=== PATIENT | male | born 1965 | race Caucasian/White ===

== ENCOUNTER 2024-02-13 12:19 | Inpatient (IN) | payer BC ==
[2024-02-13 12:53] VITALS: BMI 25.4
[2024-02-13] MEDS ORDERED: MAG HYDROX/AL HYDROX/SIMETH 30 ML UNIT-DOSE CUP PO PRN (13:41)
[2024-02-13] MEDS ORDERED: IBUPROFEN 400 MG TABLET (FP) PO PRN (13:41)
[2024-02-13] MEDS ORDERED: ACETAMINOPHEN 325 MG TABLET (FP) PO PRN (13:41)
[2024-02-13] MEDS ORDERED: BENZOCAINE/MENTHOL (CHLORASEPTIC ) LOZENGE MM PRN (13:41)
[2024-02-13] MEDS ORDERED: POLYETHYLENE GLYCOL (HEALTHYLAX) 3350 17 GM PACKET PO PRN (13:41)
[2024-02-13] MEDS ORDERED: BISMUTH SUBSALICYLATE 524 MG/30 ML PO PRN (13:41)
[2024-02-13] MEDS ORDERED: ONDANSETRON *ODT* 4 MG TABLET SL PRN (13:41)
[2024-02-13] MEDS ORDERED: MAGNESIUM HYDROX 2400MG/30ML ORAL SUSPENSION 30 ML CUP PO PRN (13:41)
[2024-02-13] MEDS ORDERED: BENZONATATE 200 MG CAPSULE PO PRN (13:41)
[2024-02-13] MEDS ORDERED: IBUPROFEN 600 MG TABLET (FP) PO PRN (13:41)
[2024-02-13] MEDS ORDERED: NALOXONE HCL 0.4 MG/ML VIAL IM PRN (13:41)
[2024-02-13] MEDS ORDERED: guaiFENesin 600 MG TABLET.ER (FP) PO PRN (13:41)
[2024-02-13] MEDS ORDERED: LOPERAMIDE HCL 2 MG CAPSULE PO PRN (13:41)
[2024-02-13] MEDS ORDERED: DICYCLOMINE HCL 10 MG CAPSULE PO PRN (13:41)
[2024-02-13] MEDS ORDERED: NALOXONE HCL (KLOXXADO) 8 MG SPRAY NS PRN (13:41)
[2024-02-13] MEDS: PRENATAL VITAMINS W/ FOLIC ACID TABLET (FP) PO SCH (15:42)
[2024-02-13] MEDS: NICOTINE 21 MG/24 HOURS TOPICAL PATCH TD SCH (17:23)
[2024-02-13] MEDS: hydrOXYzine PAMOATE 25 MG CAPSULE (FP) PO PRN (22:52)
[2024-02-13] MEDS: METHOCARBAMOL 500 MG TABLET PO PRN (22:52)
[2024-02-13] MEDS: THIAMINE HCL 100 MG TABLET (FP) PO SCH (22:52)
[2024-02-13] MEDS: MELATONIN 5 MG TABLETS PO SCH (22:53)
[2024-02-14] MEDS ORDERED: LORazepam 1 MG TABLET PO PRN (08:15)
[2024-02-14] MEDS: LORazepam 2 MG TABLET PO ONE (09:14)
[2024-02-14] MEDS: LORazepam 2 MG TABLET PO SCH (11:52)
[2024-02-14 12:16] LABS: HEMATOCRIT 41.5 % (35.4-49); HEMOGLOBIN 13.7 GM/dL (11.7-16.9); MCH 34.1 pg (25.7-33.7); MCHC 33.1 g/dl (32.0-35.9); MEAN CELL VOLUME 103.2 fl (80-96); MEAN PLT VOLUME 7.5 fl (7.5-11.1); PLATELET COUNT 258 10^3/uL (134-434); POTASSIUM 3.9 mmol/L (3.5-5.1); RBC 4.03 M/mm3 (4.00-5.60); RDW 13.5 % (11.9-15.9); WHITE BLOOD COUNT 9.7 K/mm3 (4.0-10.0)
[2024-02-14 12:18] LABS: CALCIUM 9.1 mg/dL (8.5-10.1)
[2024-02-14 12:19] LABS: ALBUMIN 3.5 g/dl (3.4-5.0)
[2024-02-14 12:22] LABS: CREATININE 0.9 mg/dL (0.55-1.3)
[2024-02-14 12:23] LABS: TOT PROT 6.8 g/dl (6.4-8.2)
[2024-02-14 12:24] LABS: BILIRUBIN,TOTAL 0.6 mg/dL (0.2-1)
[2024-02-15] MEDS: amLODIPine BESYLATE 2.5 MG TABLET (FP) PO SCH (14:56)
[2024-02-16] MEDS: LORazepam 1 MG TABLET PO SCH (05:49)
[2024-02-16] MEDS ORDERED: SUVOREXANT 10 MG TABLET PO PRN (22:00)
[2024-02-17] MEDS ORDERED: LORazepam 0.5 MG TABLET PO PRN
[2024-02-17] MEDS: LORazepam 0.5 MG TABLET PO SCH (05:48)
[2024-02-18] MEDS: LORazepam 0.5 MG TABLET PO ONE (05:37)
[2024-02-18 10:23] VITALS: BP 139/77; PULSE 102; RESP 18; TEMP 98.3
== END 2024-02-18 09:15 | disposition home or self-care (01) | DRG 774 ==
LOC: YASAS 12:19 → Y6N 14:08
PROVIDERS: ADMIT Allergy & Immunology; ATTEND Surgery
PROC: HZ2ZZZZ Detoxification Services for Substance Abuse Treatment (ICD-10-PCS; principal; 2024-02-13)
DX: F10.230 Alcohol dependence with withdrawal, uncomplicated (principal); F14.20 Cocaine dependence, uncomplicated; F12.20 Cannabis dependence, uncomplicated; F17.210 Nicotine dependence, cigarettes, uncomplicated; F19.282 Other psychoactive substance dependence with psychoactive substance-induced sleep disorder; F19.24 Other psychoactive substance dependence with psychoactive substance-induced mood disorder; G47.00 Insomnia, unspecified; E11.9 Type 2 diabetes mellitus without complications; Z79.84 Long term (current) use of oral hypoglycemic drugs
CPT/HCPCS: 36415; 80053; 80307; 82962; 83036; 85027; 86780; 93005; 93010

== ENCOUNTER 2024-02-20 10:49 | Inpatient (IN) | payer BC ==
[2024-02-20 11:22] VITALS: BMI 26.4
[2024-02-20] MEDS ORDERED: NICOTINE POLACRILEX 2 MG GUM BUC PRN (12:13)
[2024-02-20] MEDS ORDERED: NALOXONE HCL (KLOXXADO) 8 MG SPRAY NS PRN (12:13)
[2024-02-20] MEDS ORDERED: NALOXONE HCL 0.4 MG/ML VIAL IM PRN (12:13)
[2024-02-20] MEDS ORDERED: BENZONATATE 200 MG CAPSULE PO PRN (12:13)
[2024-02-20] MEDS ORDERED: POLYETHYLENE GLYCOL (HEALTHYLAX) 3350 17 GM PACKET PO PRN (12:13)
[2024-02-20] MEDS ORDERED: LOPERAMIDE HCL 2 MG CAPSULE PO PRN (12:13)
[2024-02-20] MEDS ORDERED: guaiFENesin 600 MG TABLET.ER (FP) PO PRN (12:13)
[2024-02-20] MEDS ORDERED: IBUPROFEN 400 MG TABLET (FP) PO PRN (12:13)
[2024-02-20] MEDS ORDERED: MAG HYDROX/AL HYDROX/SIMETH 30 ML UNIT-DOSE CUP PO PRN (12:13)
[2024-02-20] MEDS ORDERED: BENZOCAINE/MENTHOL (CHLORASEPTIC ) LOZENGE MM PRN (12:13)
[2024-02-20] MEDS ORDERED: INSULIN (NOVOLOG) ASPART 100 UNITS/ML 10ML VIAL ONE (13:04)
[2024-02-20] MEDS: INSULIN (NOVOLOG) ASPART 100 UNITS/ML 10ML VIAL SQ ONE (13:07)
[2024-02-20] MEDS: TUBERCULIN PPD 5 TU/0.1ML VIAL ID ONE (14:18)
[2024-02-20] MEDS: INSULIN ASPART SLIDING SCALE (NOVOLOG) 1 VIAL SQ SCH (16:37)
[2024-02-20 16:48] LABS: URINE APPEARANCE CLEAR; URINE BILIRUBIN NEGATIVE (NEGATIVE); URINE COLOR YELLOW; URINE GLUCOSE (UA) NEGATIVE (NEGATIVE); URINE KETONE NEGATIVE (NEGATIVE); URINE LEUK ESTERASE NEGATIVE (NEGATIVE); URINE NITRITE NEGATIVE (NEGATIVE); URINE PROTEIN NEGATIVE (NEGATIVE)
[2024-02-20] MEDS: MELATONIN 5 MG TABLETS PO SCH (21:17)
[2024-02-20] MEDS: THIAMINE 100 MG TABLET PO SCH (21:17)
[2024-02-20] MEDS: IBUPROFEN 600 MG TABLET (FP) PO PRN (21:19)
[2024-02-21] MEDS: PRENATAL VITAMINS W/ FOLIC ACID TABLET (FP) PO SCH (10:13)
[2024-02-21] MEDS: hydrOXYzine PAMOATE 25 MG CAPSULE (FP) PO PRN (10:23)
[2024-02-21] MEDS ORDERED: INSULIN (NOVOLOG) ASPART 100 UNITS/ML 10ML VIAL ONE ×2 (11:54→16:43)
[2024-02-21 14:44] LABS: HEMATOCRIT 40.3 % (35.4-49); HEMOGLOBIN 13.9 GM/dL (11.7-16.9); MCH 35.2 pg (25.7-33.7); MCHC 34.4 g/dl (32.0-35.9); MEAN CELL VOLUME 102.2 fl (80-96); MEAN PLT VOLUME 7.2 fl (7.5-11.1); PLATELET COUNT 229 10^3/uL (134-434); RBC 3.94 M/mm3 (4.00-5.60); RDW 13.3 % (11.9-15.9); WHITE BLOOD COUNT 8.7 K/mm3 (4.0-10.0)
[2024-02-21 15:27] LABS: ALBUMIN 3.4 g/dl (3.4-5.0); BLOOD UREA NITROGEN 16.8 mg/dL (7-18); CALCIUM 8.8 mg/dL (8.5-10.1)
[2024-02-21 15:30] LABS: CREATININE 0.9 mg/dL (0.55-1.3)
[2024-02-21 15:32] LABS: BILIRUBIN,TOTAL 0.3 mg/dL (0.2-1); TOT PROT 6.4 g/dl (6.4-8.2)
[2024-02-21 15:33] LABS: SYPHILIS W/ RPR CONF NON-REACTIVE (NONREACTIVE)
[2024-02-22] MEDS: NALTREXONE HCL 50 MG TABLET PO SCH (10:00)
[2024-02-22] MEDS: SUVOREXANT 10 MG TABLET PO PRN (21:11)
[2024-02-23] MEDS: NALTREXONE HCL 50 MG TABLET PO SCH (10:11)
[2024-02-24] MEDS: BACLOFEN 10 MG TABLET (FP) PO PRN (14:06)
[2024-02-25] MEDS: NALTREXONE HCL 50 MG TABLET PO SCH (10:02)
[2024-02-28] MEDS: ACETAMINOPHEN 325 MG TABLET (FP) PO PRN (06:24)
[2024-02-28] MEDS: SUVOREXANT 10 MG TABLET PO PRN (21:27)
[2024-03-01] MEDS: BACITRACIN 0.9 GM PACKET TP SCH (10:13)
[2024-03-02] MEDS: SUVOREXANT 10 MG TABLET PO PRN (21:32)
[2024-03-04] MEDS ORDERED: NALTREXONE MICROSPHERES (VIVITROL) 380 MG DISP.SYRIN IM ONE (18:00)
[2024-03-05] MEDS: MELATONIN 5 MG TABLETS PO PRN (21:23)
[2024-03-05] MEDS: SUVOREXANT 10 MG TABLET PO PRN (21:24)
[2024-03-06] MEDS ORDERED: hydrOXYzine PAMOATE 25 MG CAPSULE (FP) PO PRN (10:10)
[2024-03-06] MEDS: hydrOXYzine PAMOATE 50 MG CAPSULE (FP) PO PRN (21:38)
[2024-03-06] MEDS: SUVOREXANT 15 MG TABLET PO PRN (21:39)
[2024-03-06] MEDS: MAGNESIUM HYDROX 2400MG/30ML ORAL SUSPENSION 30 ML CUP PO PRN (21:39)
[2024-03-07] MEDS: LACTULOSE 20 GM/30 ML UDC (FOR ORAL USE ONLY) PO SCH (13:30)
[2024-03-09] MEDS: SUVOREXANT 15 MG TABLET PO PRN (21:19)
[2024-03-09] MEDS ORDERED: SUVOREXANT 15 MG TABLET PO ONE (22:00)
[2024-03-10] MEDS ORDERED: INSULIN (NOVOLOG) ASPART 100 UNITS/ML 10ML VIAL ONE ×2 (05:29→11:31)
[2024-03-10] MEDS: INSULIN (NOVOLOG) ASPART 100 UNITS/ML 10ML VIAL SQ ONE (10:26)
[2024-03-10] MEDS: LACTULOSE 20 GM/30 ML UDC (FOR ORAL USE ONLY) PO SCH (10:28)
[2024-03-10] MEDS ORDERED: SUVOREXANT 15 MG TABLET PO PRN (22:00)
[2024-03-10] MEDS: SUVOREXANT 10 MG TABLET PO PRN (22:18)
[2024-03-12 07:06] VITALS: TEMP 97.4
[2024-03-12 17:00] LABS: POTASSIUM 4.4 mmol/L (3.5-5.1)
[2024-03-12 17:02] LABS: ALBUMIN 3.7 g/dl (3.4-5.0); BLOOD UREA NITROGEN 14.4 mg/dL (7-18); CALCIUM 9.7 mg/dL (8.5-10.1); MAGNESIUM 1.8 mg/dL (1.8-2.4)
[2024-03-12 17:04] LABS: INR 0.95 (0.83-1.09); PROTHROMBIN TIME (PATIENT) 10.7 SEC (9.7-13.0)
[2024-03-12 17:05] LABS: CREATININE 0.8 mg/dL (0.55-1.3)
[2024-03-12 17:07] LABS: BILIRUBIN,TOTAL 0.6 mg/dL (0.2-1); TOT PROT 7.4 g/dl (6.4-8.2)
[2024-03-12] MEDS: NALTREXONE MICROSPHERES (VIVITROL) 380 MG DISP.SYRIN IM ONE (18:49)
[2024-03-13 07:24] VITALS: BP 134/79; PULSE 97; RESP 17
== END 2024-03-13 10:12 | disposition home or self-care (01) | DRG 772 ==
LOC: YASAS 10:49 → Y5N 12:43
PROVIDERS: ADMIT Allergy & Immunology; ATTEND Psychiatry & Neurology Pain Medicine
PROC: HZ42ZZZ Group Counseling for Substance Abuse Treatment, Cognitive-Behavioral (ICD-10-PCS; principal; 2024-02-20)
DX: F14.20 Cocaine dependence, uncomplicated (principal); F10.20 Alcohol dependence, uncomplicated; F17.210 Nicotine dependence, cigarettes, uncomplicated; E72.20 Disorder of urea cycle metabolism, unspecified; E11.9 Type 2 diabetes mellitus without complications; Z79.84 Long term (current) use of oral hypoglycemic drugs; G47.00 Insomnia, unspecified; H54.61 Unqualified visual loss, right eye, normal vision left eye; Z62.810 Personal history of physical and sexual abuse in childhood; Z63.8 Other specified problems related to primary support group
CPT/HCPCS: 36415; 80053; 80305; 80307; 81003; 82140; 82306; 82962; 83036; 83735; 85027; 85610; 86780; 86803; 87811; 93005; 93010; J0475; J2315